=== PATIENT | female | born 1980 | race Caucasian/White ===

== ENCOUNTER 2018-01-31 10:00 | Outpatient (RCR) | payer OTHER, SELFPAY ==
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
--- NOTE | 2018-03-11 11:25 | HP.PT.NRP ---
HP - Discharge Summary (1) - Patient Information STACY CHILEL was seen in my office for initial evaluation on 01/16/18. The following Plan of Care was established for this patient: Initial Frequency: 4x Initial Duration: 3 Weeks - Anticipated Interventions Patient/Client Instruction: Educate patient on: Benefits of Fitness Program Therapeutic Exercise to Include: Strength training, Endurance training, Balance training, Coordination, Agility training, Body mechanics, Postural training, Flexibilty training, Gait and locomotor training, Dynamic Lumbar Stabilization, Scapular Strength/Stabilization For the Purpose of:: To improve muscle performance and motor function This patient was last seen in our office . Pertinent comments regarding their Physical therapy will appear below: Patient has not attended physical therapy in over 4 weeks. At this time patient is appropriate for d/c and return to MD as needed. At this point I will be discontinuing this patient from physical therapy. I would be happy to see this patient again in the future if found appropriate by the physician. Thank you! Brittany White
== END 2018-01-31 19:00 | disposition home or self-care (01) ==
LOC: PT 10:00
DX: S00.93XD Contusion of unspecified part of head, subsequent encounter (principal); S16.1XXD Strain of muscle, fascia and tendon at neck level, subsequent encounter; S23.3XXD Sprain of ligaments of thoracic spine, subsequent encounter; S33.5XXD Sprain of ligaments of lumbar spine, subsequent encounter; S39.012D Strain of muscle, fascia and tendon of lower back, subsequent encounter; S46.911D Strain of unspecified muscle, fascia and tendon at shoulder and upper arm level, right arm, subsequent encounter; S46.912D Strain of unspecified muscle, fascia and tendon at shoulder and upper arm level, left arm, subsequent encounter
CPT/HCPCS: 97110; 97162

== ENCOUNTER 2018-05-27 09:04 | Outpatient (RCR) | payer OTHER, SELFPAY ==
--- NOTE | 2018-05-28 08:56 | HP.FCE ---
HP OT Functional Capacity Eval - Task Lift Floor (Occasional 1-33% of Day): 35# Floor (Frequent 34-66% of Day): 18# Floor (Constant 67-100% of Day): 7# Floor PDL: Light-Medium Knee (Occasional 1-33% of Day): 35# Knee (Frequent 34-66% of Day): 18# Knee (Constant 67-100% of Day): 7# Knee PDL: Light-Medium Waist (Occasional 1-33% of Day): 30# Waist (Frequent 34-66% of Day): 15# Waist (Constant 67-100% of Day): 6# Waist PDL: Light-Medium Shoulder (Occasional 1-33% of Day): 30# Shoulder (Frequent 34-66% of Day): 15# Shoulder (Constant 67-100% of Day): 6# Shoulder PDL: Light-Medium Overhead (Occasional 1-33% of Day): 20# Overhead (Frequent 34-66% of Day): 10# Overhead (Constant 67-100% of Day): NA Overhead PDL: Sedentary-Light - Work Activity/Posture Bending: Frequent Ability (34-66% of day) Squatting: Frequent Ability (34-66% of day) Kneeling: Frequent Ability (34-66% of day) Reaching out: Frequent Ability (34-66% of day) Reaching up: Frequent Ability (34-66% of day) Sitting: Frequent Ability (34-66% of day) Walking: Frequent Ability (34-66% of day) Standing: Frequent Ability (34-66% of day) - Reference Duration Sedentary Sedentary Light Light Light Medium Medium Medium Heavy Very Heavy Heavy Occasional (0-33% of day) Frequent (34-66% of day) Constant (67-100% of day) 10 # Negligible Negligible 15 # 8 # Negligible 20 # 10# Negli. 35 # 18 # 7 # 50 # 25 # 10 # 75 # 100 # >100 # 38 # 50 # >50 # 15 # 20 # >20 # - Patient Information Height: 1.68 m Weight:: 62.142 kg Hand Dominance: Right - Medical History Medical History Including Restrictions: Client states prior to a fall 2016 she was in good health. Client states she is having difficulty with back and neck issues and has been since this fall. Client states she found out about the DDD following this fall at work, resulting in testing MRI, CT scan. Client states she also reported rib fracture left side after fall that healed. Client states she was given dx of neck/back sprain/strain. After the fall client went for treatment with chiropractor services and is currently under family member caretaker. client did have physical therapy at this current facility for work conditioning. Client states she is on lifting restrictions but could not bring this information with her. client states she stretches on a somewhat regular basis. client does smoke and has smoked for about 15 years. - Diagnoses Diagnoses: Asthma dx in 1994 client uses inhaler as needed. Degenerative disc disease dx in 2017. right arm fx remote hx - Symptoms Symptoms: Client states weakness. Pain. irritable - Pain Pain: At rest client states she is 4/10 states she took 4 ibuprofen. client does have a tens unit she can get relieve. - Work History Work History: Client states she was employed at [employer] and was there a week. Client states she walked around the bar and walked through a trap door that was left open by the [employer] delivery vera. 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 she left this job to work at [employer] 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 - Behavioral Behavioral: client was coorperative and put good effort into assessment. - ADLS ADLS: Client states she lives in a ranch home with her mother with one entry steps. No basement. client states no difficulty on her entry step. Client states she uses a tub/shower, and shower chair to sit when showering. Client states she is independence with dressing. Client states she is independent with meal prep and cooking, Client states her mother does her laundry. Client states she is independent with grocery shopping. 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 client does not drive. 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 - Physical Examination ROM: Client demo ROM WNL Strength: Manual muscle testing at 4+/5 grossly throughout. Right Speech Language Specialist Strength Average: 44.33 Right Speech Language Specialist Strength Percentile: 3% Left Speech Language Specialist Strength Average: 47.66 Left Speech Language Specialist Strength Percentile: 11% Right Lateral Pinch Average: 10.00 Right Lateral Pinch Percentile: 10% Left Lateral Pinch Average: 10.00 Left Lateral Pinch Percentile: 25% Right Tripod Pinch Average: 10.00 Right Tripod Pinch Percentile: 25% Left Tripod Pinch Average: 10.00 Left Tripod Pinch Percentile: 25% Comments: Client tested on [employer] simulator II with static comparison natural resources professor strength. Right 1st trial 43.9#. Right 2nd trial 84.3#. Right 3rd trial 65.7#. average right natural resources professor strength 64.6#. Left 1st trial 73.1#. Left 2nd trial 62.9#. Left 3rd trial 75.1#. average left natural resources professor strength 70.4#. Left natural resources professor strength is 8.9% stronger than right. Sensation: Klondike-taty Monofilament sensory testing. Right Thumb/IF 3.22 MF,RF,LF 2.83. left Thumb 3.22, IF, MF, RF, LF 2.83. All testing at 2.83=Normal. All testing at 3.22 = diminished light touch Fine Motor: 9 Hole-Peg test. Right 20.13 sec = 25%. Left 18.23 sec = 50% Balance: No loss of balance noted during assessment - Non Material Handling Activities Bending: client demo the ability to bend forward three times, ten times and ten times rapidly. Client reported feeling fine. client can bend forward on a frequent ability. Squatting: Client demo the ability to squat three times, ten times and ten times rapidly. Client verbalized legs felt tired following. Client can squat on a frequent basis. Kneeling: Client demo the ability to kneel three times, ten times and ten times rapidly. Client reported legs feeling tired following. Client can kneel on a frequent basis. Reaching out/up: Client demo the ability to reach out/up three times, ten times and ten times rapidly. Client performed this task while standing. Client did report when performing ten times her arms felt tired. Client did report going faster her arms did not feel as tired. Client can reach out/up on a frequent ability. Walking: client does not drive so walking is her mode of transportation. client states no difficulty with ambulation. client amb in department with good fast reciprival gait pattern with no difficulties. Client demo the ability to amb on a frequent ability. Standing: Client demo ability to stand 8 min with shifting body weight and leaning on counter top. Client can stand on a frequent ability with shifting body weight. Sitting: Client demo the ability to sit for 50 min with no demo or apparent discomfort. Client can sit on a frequent basis. Climbing Stairs: Client demo the ability to ascend/descend ten steps with no use of hand rails and use of reciprocal step pattern. - Dynamic Occasional Lifting Capacity Floor Lift: Client demo the ability to lift 15# comfortably and 35# maximally from floor level. Therapist cued client in keeping weight close to body vs keeping arms out in front of pt while lifting. pt demo better lifting mechanics flowing cues. Knee Lift: Client demo the ability to lift 15# comfortably and 35# maximally from knee level. Client demo fair lifting mechanics. Waist Lift: Client demo the ability to lift 15# comfortably and 30# maximally from waist level. client demo fair lifting mechanics- client tends to hold boxes out away from her body. Shoulder Lift: Client demo the ability to lift 15# comfortably and 30# maximally from shoulder level. Overhead Lift: Client demo the ability to lift 10# comfortably and 20# maximally from overhead level. Carrying: Client demo the ability to carry 20# for 40 feet with good ability. Comments: Client demo good effort during the assessment. Client states following her assessment she felt tired and her back pain did not change, she reported 4/10.
--- OUTSIDE RECORDS SUMMARY | 2018-07-13 07:40 | XMS RPT_ITS ---
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 Patient Seen at: 09/23/2017 08:37 Chief Complaint:Fall down 10 steps with + Loc Ambulatory upon ems arrival and aandamp;ox3 lac to lt side of forehead History of Present Illness: This is a 37-year-old female with a past medical and surgical history of no significant diseases who presents to the emergency room today for a fall, she tripped down several stairs she tripped over her dog. She did her head, didnt lose consciousness. She is not on blood thinners. She does report head pain, she denies neck or back pain, chest or abdominal pain, extremity pain. Tetanus is greater than 5 years old. She denies any numbness, tingling or weakness. Review of Systems. All other systems reviewed and negative.. Past History, Medications, Allergies, Social History and [facility] PATIENT NAME: ANNE CHILEL [address] [facility] [address] Tejeda MEDICAL REC #: [id number] [place] [address] EMERGENCY DEPARTMENT CHART EMERGENCY DEPARTMENT PHYSICIAN Family History reviewed in nurses note. Medications: Reviewed RN Note. Allergies: Reviewed RN Note Social History: Reviewed RN Note. Family History: Reviewed RN Note Physical Examination: General: Alert and Well Developed HEENT: 4 cm laceration on L side of forehead, no hematoma. Neck: immobilized in cervical collar Respiratory: No Resp Distress, Chest non-tender and Normal Breath Sounds Cardio-Vascular: No murmur and RRR Abdomen: Non-tender and Soft Back: Non-tender Extremity: No edema Neurological: Alert, Oriented X3 and No Gross Weakness Skin: No rash, Warm and Dry Psychological: Mood/Affect Normal Imaging Study Obtained: CT (HEAD/BRAIN) WO CONT Imaging Study Obtained: CT (CERVICAL SP) W/O CON Imaging Study Obtained: CT SINUSES/FACIA BONES WO CONT Imaging Study Obtained: WRIST COMPLETE BILATERAL Imaging Study Obtained: CT CERVICAL SP. W/O CON, Status:Signed Report Available CT CERVICAL SP. W/O CON Ordering Physician: Darion Berrios MD 09/23/2017 8:[address] CERVICAL SPINE WITH SAGITTAL AND CORONAL RECONSTRUCTIONS: Clinical Statement: Status post fall downstairs Comparison: None. [facility] PATIENT NAME: ANNE CHILEL [address] [facility] [address] MEDICAL REC #: [id number] [place] [address] EMERGENCY DEPARTMENT CHART EMERGENCY DEPARTMENT PHYSICIAN TECHNIQUE: 2.5 mm transaxial images were obtained through the cervical spine. Sagittal and coronal reconstructions were processed. FINDINGS: No compression fractures or malalignment. The posterior elements are intact. The facets articulate normally. The craniocervical junction and C1-C2 articulation are normal. There is no prevertebral soft tissue swelling. The fluid collection within the neck or neck mass. The lung apices are clear except for a 3 mm nodule seen laterally in the right lung apex that is likely incidental. There is degenerative disk disease at C5-C6. There is no severe spinal stenosis. There is uncovertebral arthropathy on the left at C3-C4 and C5-C6 and on the right at C5-C6 IMPRESSION: No acute osseous abnormality ---- Electronic Signature on File ---- Signed By: Raz Romero MD [email or web address] Dictated: 09/23/2017 9:28 AM Signed: 09/23/2017 9:32 AM [facility] PATIENT NAME: ANNE CHILEL [address] Te[address]eda MEDICAL REC #: [id number] [place] [address] EMERGENCY DEPARTMENT CHART EMERGENCY DEPARTMENT PHYSICIAN Reported By: RAZ ROMERO M.D. Imaging Study Obtained: CT SINUSES/FACIAL BONES W/O CO, Status:Signed Report Available CT SINUSES/FACIAL BONES W/O CO Ordering Physician: Darion Berrios MD 09/23/2017 8:[address] FACIAL BONES WITH CORONAL RECONSTRUCTIONS: Clinical Statement: Status post fall downstairs head laceration Comparison: None. TECHNIQUE: Helical acquired transaxial images were obtained through the facial bones. Coronal reconstructions were processed. FINDINGS: The visualized portions of the mandible are intact. The maxilla and skull base and calvarium are intact. The orbital beckett are intact. There is soft tissue swelling over the forehead. There is mild mucosal thickening within the paranasal sinuses. The orbits are within normal limits. IMPRESSION: No acute osseous abnormality [facility] PATIENT NAME: ANNE CHILEL [address] [facility] [address] Tejeda MEDICAL REC #: [id number] [place] [address] EMERGENCY DEPARTMENT CHART EMERGENCY DEPARTMENT PHYSICIAN ---- Electronic Signature on File ---- Signed By: Raz Romero MD [email or web address] Dictated: 09/23/2017 9:39 AM Signed: 09/23/2017 9:44 AM Reported By: RAZ ROMERO M.D. Medical Decision Making This is a previously healthy 37-year-old female who presents to the emergency department today for a fall down multiple stairs, she did lose consciousness, she does have a head laceration. On my examination, the patient is in no acute distress, vital signs are notable for no significant abdomen out of his other than hypertension. Differential diagnosis the patient comes complaints include intracoronal trauma including subarachnoid hemorrhage, subdural hemorrhage, intraparenchymal hemorrhage, cervical spine trauma, facial bone fractures. Given a diagnostic possibility, IVs established, imaging is obtained as above. CT of the brain and cervical spine are negative. Laceration will be repaired. Tetanus is updated. CT of the face, brain, and neck are negative. Cervical collar is removed. Lacerations repaired. Patient is treated with pain medications, she does request a prescription for pain medication, she is discharged home with appropriate return precautions, verbal and written discharge instructions. Additional Information: Old records reviewed. Discussed Results, Diagnosis and Follow-Up with Patient. Clinical Impression: 1. closed head injury 2. forehead laceration Disposition: Discharged *Home. Condition: Good [facility] PATIENT NAME: ANNE CHILEL [address] [facility] [address] Tejeda MEDICAL REC #: [id number] [place] [address] EMERGENCY DEPARTMENT CHART EMERGENCY DEPARTMENT PHYSICIAN JUS completed. I was the primary ED attending.. : FlexChartData Event Time: 09/23/2017 11:40 Status: Signed [facility] Anne Chilel [[id number]] Mid-Level Addendum 1980 (V2b) Chart created at 09/23/2017 11:37 by Chilo Carlson Chart closed at 09/23/2017 11:38 Entry in Emergency Department at 09/23/2017 08:24 Patient Name: Anne Chilel Record Number: [id number] Date: 09/23/2017 11:37 Entered Department at: 09/23/2017 08:24 Patient Seen at: 09/23/2017 08:37 Chief Complaint:Fall down 10 steps with + Loc Ambulatory upon ems arrival and aandamp;ox3 lac to lt side of forehead Physician Performed Procedures Procedure note laceration closure: Closable length 6 cm. Down to subcutaneous fat, does not extend deeper. Anesthetized with Marcaine for anesthesia. Irrigated with saline. closed with 5-0 nylon sutures combination of simple interrupted and vertical mattress for adequate approximation, eversion, and hemostasis Direct patient care supervision and electronic [facility] PATIENT NAME: NANE CHILEL [address] [facility] [address] Tejeda MEDICAL REC #: [id number] [place] [address] EMERGENCY DEPARTMENT CHART EMERGENCY DEPARTMENT PHYSICIAN documentation review by Darion Berrios on 09/23/2017 12:35. : Discharge Report Event Time: 09/23/2017 12:15 ===DISCHARGE REPORT=== : FlexChartData Event Time: 09/23/2017 09:50 : FlexChartData Event Time: 09/23/2017 11:40 : Discharge Report Event Time: 09/23/2017 12:15 Status: Draft Reasons to Return to the ER: You must return to the ER for any new, worsening or changing symptoms, or if you feel more ill or sick in any way. This is the most important thing to remember. Follow-up: The care you received in the ER was given on an emergency basis only, and it is often not possible to completely treat or diagnose a problem in a single ER visit. You must see your follow-up doctor for a recheck within a week unless you receive instructions with a different timeframe for follow-up. Please follow all your discharge instructions. Medications: Unless the ER doctor tells you differently, you should take all your regular medications and any new medications prescribed today. Because it is not possible for the ER doctor to review all of your medication side effects or interactions, you must review possible side effects and interactions with your pharmacist when you get your prescriptions filled. EKG and Radiology Results: A geoduck diver or radiologist will review any EKG or radiology results provided by the ER doctor. We will [facility] PATIENT NAME: ANNE CHILEL [address] [facility] [address] Tejeda MEDICAL REC #: [id number] [place] [address] EMERGENCY DEPARTMENT CHART EMERGENCY DEPARTMENT PHYSICIAN contact you if the results in the final EKG or radiology reports require a change in treatment. Culture Results: Cultures may have been ordered during your ER visit. We will contact you if the culture results require a change in treatment. Referrals: Most referrals to specialists come from the on-call list You should make your regular doctor aware of any referrals before you schedule the appointment so that they are aware and can make suggestions DIAGNOSIS: closed head injury, forehead laceration INSTRUCTIONS: use pain medication such as Tylenol and motrin for mild pain, use Faxon for more severe pain, return if having worsening pain, redness, swelling, or drainage from wound, numbness, tingling, weakness, difficulty with movement, difficulty speaking, or any other worsening or non improvement remove sutures in 5-7 days at PCP/statcare/or ER It is very important that a responsible person stay with the patient to watch for head injury symptoms over the next 24 hours. During this 24 hours, the patient must be observed closely and should be awakened every 3-4 hours while sleeping (even at night). UNLESS THE ER DOCTOR GIVES YOU OTHER INSTRUCTIONS, YOU MUST SEE YOUR FOLLOW-UP DOCTOR WITHIN 2 TO 3 DAYS FOR RECHECK. YOU MUST RETURN TO THE ER RIGHT AWAY FOR ANY OF THE FOLLOWING:New or increasing headacheNew or increasing nausea or vomitingFever or chillsNew or more seizuresDrainage or bleeding from the nose or earsIncreasing confusion or dizzinessWeakness in the arms or legsNew or increasing vision problemsSlurred speechUnequal [facility] PATIENT NAME: ANNE CHILEL [address] [facility] [address] Tejeda MEDICAL REC #: [id number] [place] [address] EMERGENCY DEPARTMENT CHART EMERGENCY DEPARTMENT PHYSICIAN pupilsJust not acting right After careful evaluation, the doctor feels that it is OK to send you home at this time. Just because you were not admitted into the hospital today does not mean that your head injury may not become more serious. Even very serious problems, like brain swelling or bleeding, can start with a normal examination or test results. You should avoid alcohol and aspirin, unless you are taking the aspirin for another medical problem. You must use all of your regular medications plus all the medications that were given to you today. It is very important that a responsible person stay with the patient to watch for head injury symptoms over the next 24 hours. During this 24 hours, the patient must be observed closely and should be awakened every 3-4 hours while sleeping (even at night). UNLESS THE ER DOCTOR GIVES YOU OTHER INSTRUCTIONS, YOU MUST SEE YOUR FOLLOW-UP DOCTOR WITHIN 2 TO 3 DAYS FOR RECHECK. YOU MUST RETURN TO THE ER RIGHT AWAY FOR ANY OF THE FOLLOWING:New or increasing headacheNew or increasing nausea or vomitingFever or chillsNew or more seizuresDrainage or bleeding from the nose or earsIncreasing confusion or dizzinessWeakness in the arms or legsNew or increasing vision problemsSlurred speechUnequal pupilsJust not acting right REFERRAL Your regular doctor(s) Please call the above number to schedule a follow-up appointment. MEDICATIONS We have given you these prescriptions that you must fill and start taking: Faxon 5 mg-325 mg tablet, count:12, Dose = 1, count:12, 3 days, count:12,every 6 hours, count:12, Number of Refills = [facility] PATIENT NAME: ANNE CHILEL [address] [facility] [address] Te[address]eda MEDICAL REC #: [id number] [place] [address] EMERGENCY DEPARTMENT CHART EMERGENCY DEPARTMENT PHYSICIAN 0, count:12, [id number], ICD 10 S06.0, count:12 My signature below indicates that I have received and understand the oral instructions regarding my medical problem. I also acknowledge receipt of this written instruction sheet including a list of major tests and procedures ordered during my visit. I will arrange for follow-up care as indicated by these instructions and referrals. This signed original will be kept in my medical record. Your signature below indicates consent for Case Management to [facility] in an effort to meet your ongoing healthcare needs. This will allow forcontinuity of care once you leave the Emergency Department. This exchange of informationwill include, but not be limited to, disclosure of your patient information and possible release of records. 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 Te[address]eda MEDICAL REC #: [id number] [place] [address] EMERGENCY DEPARTMENT CHART EMERGENCY DEPARTMENT PHYSICIAN Ambulatory upon ems arrival and aandamp;ox3 lac to lt side of forehead Arrival Date: 09/23/2017 08:24 Triage Date: 09/23/2017 08:25 Mode of Arrival: Ambulance Transfer From: * Home WC: N Language: Lithuanian Transport: [facility] BED AHALL12 In: 09/23/2017 08:27:02 09/23/2017 08:27:02 [facility] AHALL12 (Removed From) Out: 09/23/2017 09:39:55 09/23/2017 09:39:55 [facility] A12 In: 09/23/2017 09:39:55 09/23/2017 09:39:55 [facility] A12 (Removed From) Out: 09/23/2017 12:49:47 09/23/2017 12:49:47 [facility] PROVIDERS MD Darion Berrios Provider Contact: 09/23/2017 08:37:15 ADB End: DENIA CHESTER Provider Contact: 09/23/2017 08:46:31 KAS[facility] End: LIDIA Carlson Provider Contact: 09/23/2017 10:34:34 RAYD End: TRIAGE HISTORY [facility] PATIENT NAME: ANNE CHILEL [address] MEDICAL REC #: [id number] [place] [address] EMERGENCY DEPARTMENT CHART EMERGENCY DEPARTMENT PHYSICIAN NURSING ASSESSMENT ASSESSMENT NOTES 09/23/2017 08:30 see trauma flow sheet 09/23/2017 12:49 [facility] TREATMENT 09/23/2017 08:46 Trauma Time Activation - 2. Trauma Standby Called @ 0813 09/23/2017 08:46 AAR MEDICATIONS IV I AND O VITALS VS-ROUTINE Time: 09/23/2017 09:35 B/P: 126/86 - Right Upper Arm - Sitting - Machine Pulse: 69 - Monitor Resp: 20 Sa02: 99 Room Air Temp: 97.60 F - Oral 09/23/2017 10:00 [facility] VS-Pain Time: 09/23/2017 09:35 Pain Level: 10 09/23/2017 10:00 [facility] VS-GCS Time: 09/23/2017 09:35 Visual: 4 Verbal: 5 Motor: 6 GCS Total: 15 09/23/2017 10:00 [facility] VS-HT/WT Time: 09/23/2017 09:35 Ht: 66 in. Stated Weight: 135 lbs Stated 09/23/2017 10:00 [facility] VS-Visual Time: 09/23/2017 09:35 09/23/2017 10:00 [facility] VS-FHT Time: 09/23/2017 09:35 09/23/2017 10:00 [facility] VS-Notes Time: 09/23/2017 09:35 map 103 09/23/2017 10:00 KASD [facility] PATIENT NAME: ANNE CHILEL [address] [facility] [address] Te[address]eda MEDICAL REC #: [id number] [place] [address] EMERGENCY DEPARTMENT CHART EMERGENCY DEPARTMENT PHYSICIAN ORDERS Discharge patient 09/23/2017 12:16 N/A Ordered: 09/23/2017 12:12 By . Other Reviewed: 09/23/2017 12:16 By . Other Micky wrap 09/23/2017 12:05 N/A Ordered: 09/23/2017 11:44 By Darion Berrios Completed Time: 09/23/2017 12:05 By Darion Berrios Question: Location? Answer: bilateral wrists Morphine (IV)*(4mg/ml) DOSE:4 mg IV 09/23/2017 10:09 N/A Ordered: 09/23/2017 09:58 By Darion Berrios Completed Time: 09/23/2017 10:[address] C-spine w/o con 09/23/2017 09:40 N/A Ordered: 09/23/2017 08:45 By Darion Berrios Completed Time: 09/23/2017 09:40 By Darion Berrios Indication: fall down multiple stairs Noted Time: 09/23/2017 09:20 Question: Are you or think you might be ? Answer: NO CT sinuses/facial bones w/o con 09/23/2017 09:51 N/A Ordered: 09/23/2017 08:45 By Darion Berrios Completed Time: 09/23/2017 09:51 By Darion Berrios Indication: fall, forehead laceration Noted Time: 09/23/2017 09:20 Question: Are you or think you might be ? Answer: NO CT head/brain w/o con 09/23/2017 09:40 N/A Ordered: 09/23/2017 08:45 By Darion Berrios Completed Time: 09/23/2017 09:40 By Darion Berrios Indication: fall, forehead laceration Noted Time: 09/23/2017 09:20 Question: Are you or think you might be ? Answer: NO [facility] PATIENT NAME: ANNE CHILEL [address] [facility] [address] Te[address]eda MEDICAL REC #: [id number] [place] [address] EMERGENCY DEPARTMENT CHART EMERGENCY DEPARTMENT PHYSICIAN Zofran (IV)*(2mg/ml) DOSE: 4 mg IV 09/23/2017 11:44 N/A Ordered: 09/23/2017 09:58 By Darion Berrios Cancelled: 09/23/2017 11:44 ADB Cancelled Reason: not needed Wrist series (bilat) 09/23/2017 09:45 N/A Ordered: 09/23/2017 08:45 By Darion Berrios Indication: bilateral wrist pain after fall Question: Are you or think you might be ? Answer: NO Question: How is patient transported? (A = Ambulatory, B = Bed, C = Carry, CR = Crib, P = Portable, S = Stretcher, W = Wheelchair, X = Wide Wheelchair, XT = Trauma X RM17 (ED Only)) Answer: STRETCHER Cancelled: 09/23/2017 09:45 ADB Cancelled Reason: patient refuses DISCHARGE Diagnosis: closed head injury, forehead laceration 09/23/2017 12:15 CANCELLED DIAGNOSES Diagnosis Name: closed head injury, forehead laceration Disposition: Time: 09/23/2017 12:12 Discharge Time: 09/23/2017 12:49 Type: Discharge Condition: Stable for admission/discharge/transfer after emergency evaluation/treatment Category: *NOT APPLICABLE Referral: 09/23/2017 12:15 Admit Physician: . Other PRESCRIPTIONS Faxon 5 mg-325 mg tablet 09/23/2017 12:15 SI q6h severe pain for 3 days Additional Instructions: [id number], ICD 10 S06.0 Dispense: 12 / Refills: [facility] PATIENT NAME: ANNE CHILEL Rhonda [address] [facility] [address]eda MEDICAL REC #: [id number] [place] [address] EMERGENCY DEPARTMENT CHART EMERGENCY DEPARTMENT PHYSICIAN CHARGES SIGNATURE Melida Vega SILVINO Sanchesard Aldo MURILLO LFAikla ANTONIO [facility] THIERNO CHESTER RN KASAkila WILCOX KKF Darion Berrios MD ADB [facility] PATIENT NAME: ANNE CHILEL [address] [facility] [address]eda MEDICAL REC #: [id number] [place] [address] EMERGENCY DEPARTMENT CHART EMERGENCY DEPARTMENT PHYSICIAN CT SINUSES/FACIAL BONES Observed: 09/23/2017 Status: F Source: [facility] W/O CO 8:45 AM [facility] REPOSITORY CT SINUSES/FACIAL BONES W/O CO Ordering Physician: Darion Berrios MD 09/23/2017 8:[address] FACIAL BONES WITH CORONAL RECONSTRUCTIONS: Clinical Statement: Status post fall downstairs head laceration Comparison: None. TECHNIQUE: Helical acquired transaxial images were obtained through the facial bones. Coronal reconstructions were processed. FINDINGS: The visualized portions of the mandible are intact. The maxilla and skull base and calvarium are intact. The orbital beckett are intact. There is soft tissue swelling over the forehead. There is mild mucosal thickening within the paranasal sinuses. The orbits are within normal limits. IMPRESSION: No acute osseous abnormality ---- Electronic Signature on File ---- Signed By: Raz Romero MD [email or web address] Dictated: 09/23/2017 9:39 AM Signed: 09/23/2017 9:44 AM Reported By: RAZ ROMERO M.D. Signed By: RAZ ROMERO M.D. CT CERVICAL SP. W/O Observed: 09/23/2017 Status: F Source: [facility] 8:[address] [facility] [address] CERVICAL SP. W/O CON Ordering Physician: Darion Berrios MD 09/23/2017 8:[address] CERVICAL SPINE WITH SAGITTAL AND CORONAL RECONSTRUCTIONS: Clinical Statement: Status post fall downstairs Comparison: None. TECHNIQUE: 2.5 mm transaxial images were obtained through the cervical spine. Sagittal and coronal reconstructions were processed. FINDINGS: No compression fractures or malalignment. The posterior elements are intact. The facets articulate normally. The craniocervical junction and C1-C2 articulation are normal. There is no prevertebral soft tissue swelling. The fluid collection within the neck or neck mass. The lung apices are clear except for a 3 mm nodule seen laterally in the right lung apex that is likely incidental. There is degenerative disk disease at C5-C6. There is no severe spinal stenosis. There is uncovertebral arthropathy on the left at C3-C4 and C5-C6 and on the right at C5-C6 IMPRESSION: No acute osseous abnormality ---- Electronic Signature on File ---- Signed By: Raz Romero MD [email or web address] Dictated: 09/23/2017 9:28 AM Signed: 09/23/2017 9:32 AM Reported By: RAZ ROMERO M.D. Signed By: RAZ ROMERO M.D. CT HEAD/BRAIN W/O CON Observed: 09/23/2017 Status: F Source: [facility] 8:[address] [facility] [address] HEAD/BRAIN W/O CON Ordering Physician: Darion Berrios MD 09/23/2017 8:[address] BRAIN WITHOUT CONTRAST: Clinical Statement: Status post fall for a head laceration Comparison: None. TECHNIQUE: Noncontrast axial images were obtained through the brain FINDINGS: The ventricles and cisternal spaces are normal in size and configuration for a patient of this age. There is no hemorrhage or extra-axial fluid collection. No acute infarct, mass, or shift of midline structures. There is mild mucosal thickening in the ethmoid sinuses and left maxillary sinus. The mastoid air cells and middle ears are clear. The calvarium is intact. The orbits are appropriate. There is soft tissue swelling over the left side of the for head. A soft tissue laceration is also noted. IMPRESSION: No acute intracranial abnormality ---- Electronic Signature on File ---- Signed By: Raz Romero MD [email or web address] Dictated: 09/23/2017 9:33 AM Signed: 09/23/2017 9:36 AM Reported By: RAZ ROMERO M.D. Signed By: RAZ ROMERO M.D. ED DOC Observed: 08/22/2017 Status: UNK [facility] REPOSITORY This is a preliminary report only, as the practitioner review and authentication has not occurred. 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[employer] [facility] Patient: ANNE CHILEL Sex: F : 1980 Age: 37 yr Account No: [id number] Registration Date: 12:14 08/22/2017 Address: [address] [place] [address] Address: [place] [id number] REGISTRATION ED Number: [id number] Marital Status: D Financial Class: [employer] TRIAGE Arrival Date: 08/22/2017 12:14 WC: N BED PROVIDERS TRIAGE HISTORY [facility] PATIENT NAME: ANNE CHILEL [address] MEDICAL REC #: [id number] [place] [address] EMERGENCY DEPARTMENT CHART EMERGENCY DEPARTMENT PHYSICIAN NURSING ASSESSMENT ASSESSMENT NOTES TREATMENT MEDICATIONS IV I AND O VITALS ORDERS LBE (Left Before Exam) 08/22/2017 13:02 N/A Ordered: 08/22/2017 13:02 By REYNA SIBLEY Reviewed: 08/22/2017 13:02 By REYNA SIBLEY DISCHARGE Diagnosis: LWT 0 08/22/2017 13:02 Disposition: Time: 08/22/2017 13:01 By: REYNA SIBLEY Discharge Time: 08/22/2017 13:01 Type: LBE Condition: LBE Category: *NOT APPLICABLE Concurred: 08/22/2017 13:02 By: PADDY Pt left and sts she was going to [facility]. Referral: 08/22/2017 13:02 PADDY [facility] PATIENT NAME: ANNE CHILEL [address] [facility] Te[facility]eda MEDICAL REC #: [id number] [place] [address] EMERGENCY DEPARTMENT CHART EMERGENCY DEPARTMENT PHYSICIAN PRESCRIPTIONS CHARGES SIGNATURE REYNA THOMASON [facility] PATIENT NAME: ANNE CHILEL [address] [facility] [address] Tejeda MEDICAL REC #: [id number] [place] [address] EMERGENCY DEPARTMENT CHART EMERGENCY DEPARTMENT PHYSICIAN SURG Observed: 08/12/2017 Status: F Source: [facility] 10:40 AM [facility] REPOSITORY Patient: ANNE CHILEL SPECIMEN: [id number] Collection Date: 08/12/171039 Received: 08/12/17 Status: MARCOS Anderson Dr.: Mikal Jeong MD Ph# Othr. Dr.: No Family Physician given Material for Examination: A OCCIPITAL LIPOMA PRE-OP DIAGNOSIS: OCCIPITAL CONTUSION POST-OP DIAGNOSIS: OCCIPITAL LIPOMA SURGICAL PROCEDURE: EXCISION OF OCCIPITAL LIPOMA DIAGNOSIS A. Occipital lipoma, excision: - Encapsulated mature adipose tissue consistent with lipoma. GROSS DESCRIPTION The specimen is received in formalin and labeled with the patient's name, ID and designated occipital lipoma, is a amaya focally encapsulated portion of adipose tissue, 3.2 x 2.8 x 1.3 cm. Cut section has a uniform, amaya, fatty appearance. No areas of hemorrhage or necrosis are grossly identified. [place] sections are submitted in cassette A1. MICROSCOPIC DESCRIPTION One Marilee stained slide examined. COPIES TO: No Family Physician given Mikal Jeong MD Signed Verified/Reviewed by LAKSHMI BARNES M.D. 08/13/17 This dictation was created using voice recognition software. Phonetic and/or minor grammatical errors may exist. [facility] NAME: ANNE CHILEL Pathology and Laboratory Medicine UNIT#: [id number] LOC: [facility] Advanced Solutions Architect: Lakshmi Barnes M.D. [id number] ROOM/BED: [employer] : 78 AGE/SEX: 37/F ORD.Mikal Mg MD END OF REPORT HCG Collected: 08/12/2017 Status: F Source: [facility] 8:21 AM [facility] REPOSITORY Order Comment: Cecil: TYPE CODE TESTS RESULT OUT OF RANGE REFERENCE UNITS LAB L500.37022 NEGATIVE Normal HCG SER NEGATIVE RESULT Performed By: #### L500.02722 #### [facility] LABORATORY [facility] [place] [address] OR Observed: 08/12/2017 Status: UNK Source: [facility] 7:36 AM [facility] REPOSITORY DATE OF SERVICE: 08/12/2017 PREOPERATIVE DIAGNOSIS: Midline occipital subgaleal lipoma. POSTOPERATIVE DIAGNOSIS: Midline occipital subgaleal lipoma. OPERATION: Excision of occipital subgaleal lipoma. SURGEON: Mikal Jeong MD ANESTHESIA: General. INDICATIONS: This patient is a 37-year-old woman with a history of a fall where she struck her head in March of last year. Ever since, she has noticed a soft, fluctuant, what feels like a fluid collection in the occipital midline scalp area. She presented to my office stating that she thinks it is a non-resolved hematoma, but imaging actually shows that it is a deep subgaleal lipoma and it is fairly large. It is a little over 3-cm in diameter . She is brought to the operating room at this time for excision of the lipoma. DETAILS OF THE PROCEDURE: The patient was brought to the OR and placed in the supine position. She was given general anesthesia and ventilated with laryngeal mask airway. The head was turned to the side so that we could approach the posterior midline occipital area. The hair was parted away from it without shaving the scalp and then injected with 3 mL of lidocaine with epinephrine. She was prepped and draped in the usual sterile fashion. The short transverse incision was made over the area of the lipoma. Bleeding from the scalp edges was controlled with a Bovie. The lipoma was deep to the galea. An incision was made through the galea and then the lipoma capsule was encountered. A capsular dissection was performed, excising all of the lipoma. Some galeal bleeders were cauterized with the Bovie. The closure was obtained using some very deep 3-0 Prolene sutures deep enough to catch both the skin edge and the galea and reapproximate the galea and try to close that space so that she does not actually get a hematoma from this lipoma excision. ESTIMATED BLOOD LOSS: 5 mL. SPECIMENS: Occipital lipoma to Pathology. COMPLICATIONS: None. Mikal Jeong MD [facility] PATIENT NAME: ANNE CHILEL [address] [facility] [address] Te[address]eda MEDICAL REC #: [id number] [place] [address] ADMIT DATE: DISCHARGE DATE: OPERATIVE REPORT ATTENDING PHY: Mikal Jeong MD /[id number] SSI File#: [id number] Verified/Reviewed by 08/17/17 Kisha BROWN [facility] PATIENT NAME: ANNE CHILEL [address] [facility] [address] Te[address]eda MEDICAL REC #: [id number] [place] [address] ADMIT DATE: DISCHARGE DATE: OPERATIVE REPORT ATTENDING PHY: Mikal Jeong MD ALLERGIES ALLERGIES No Allergies Records FoundENCOUNTERS ENCOUNTERS ADMIT/DISCHARGE ACCOUNT NUMBER ADMITTING ENCOUNTER LOCATION SOURCE CLASS 06/27/2018 [id number] [facility] ding:PT Repository 05/27/2018 [id number] [facility] ding:OT Repository 01/31/2018/02/01/[id number] ding:PT Repository 09/30/2017 [id number] Emergency [facility] Repository ng:H.ED 09/23/2017 [id number] Emergency [facility] Repository ng:H.ED 08/22/2017 [id number] Emergency [facility] Repository ng:H.ED 08/21/2017/08/22/19 [id number] ELI TORRES, Emergency BBuilding:ER Andrea [address] [place] [address] Repository 08/12/2017 [id number] Inpatient [facility] Repository ng:H.SD 07/15/2017/07/15/19 [id number] Emergency BBuilding:MIRANDA Mendez [address] [place] [address] Repository 07/15/2017/07/15/19 [id number] Emergency BBuilding:MIRANDA Mendez [address] [facility] Repository PAYERS PAYERS ENCOUNTER GUARANTOR PAYER SUBSCRIBER SOURCE 06/27/2018 ANNE Ellis Primary Insurance:[facility] [employer] ANNE L Ang [id number] N VOC REHABILITATIONPolicy VENABLESDOB: [facility], Number: [id number] [address]Qsh: [id number] Repository Date: () [place], [place] [address]FQ: 06/27/2018 Secondary Insurance:SELF NOT GIVENUNK [place] PAY INSURANCEPolicy Community Number: Effective Hospital Date:2018-06-05 Repository 05/27/2018 ANNE Ellis Primary Insurance:[employer] AN[employer] Ang [id number] N VOC REHABILITATIONPolicy VENABLESDOB: [facility], Number: [id number] [facility] [address]Njh: [id number] Repository Date: () [place], [place] [address]FS: 05/27/2018 Secondary Insurance:SELF NOT GIVENUNK [place] PAY INSURANCEPolicy Community Number: Effective Hospital Date:2018-01-31 Repository 01/31/2018 ANNE Ellis Primary Insurance:OBWC ANNE L [place] [id number] [address] [facility]DOB[facility] Number: [id number] [address]Lbk: [id number] Repository Date: () [place] [address], [place] [address]RP: 01/31/2018 Secondary Insurance:SELF NOT GIVENUNK Ang PAY INSURANCEPolicy Community Number: Effective Hospital Date:2018-01-08 Repository 09/30/2017 ANNE Ellis Primary ANNE Ellis [facility] Medical [id number] N Insurance:CARESOURCEPolic VENABLESUNK [facility], Number: Repository [place] [id number]: [id number] Date:2017-07-18[address] (HP) [address] [place] [address]FC: 09/23/2017 ANNE L Primary ANNE L [facility] [id number] N Insurance:[facility], y Number: [place]ository [place] [id number]: [id number] Date:2017-07-18[address] (HP) [address] [place] [address]DL: 08/22/2017 ANNE L Primary [facility] [id number] N Insurance:[facility], y Number: Repository [place] [id number]: [id number] Date:2017-07-18[address] () [address] [place] [address]SU: 08/21/2017 [facility] VENABLESDOB: Insurance[facility]: [facility] MEDICAIDPolicy Number: [id number] Repository [facility] [id number] [place] Date:2017-07-18 [facility] [address]Fon: [id number]: [id number] Name:[address] [place] [address] ()Tel: [phone]) (HP) [phone]: () [phone] 08/12/2017 ANNE L Primary ANNE [facility] [id number] N [facility] y Number: Repository [place] [id number]: [id number] Date:2017-08-07[address] () [address] [place] [address]NG: 07/15/2017 ANNE Primary Insurance:SELF [facility] PAYPolicy Number: [id number] MERDOB: Effective Date:2017-07-15 RDOB: Repository - [id number] Name: [id number] [facility] [place] [address]Fjr: [id number]: (WP) (WP) 07/15/2017 ANNE L Primary Insurance:SELF [facility] VENABLESDOB: PAYPolicy Number: LIAB: [id number] Effective Date:2017-07-15 [id number] [facility] [id number] Name:[address] [place] [address]Knr: [id number]: (HP)Tel: [phone]) (HP) [phone] (WP)
== END 2018-05-27 19:00 | disposition home or self-care (01) ==
LOC: OT 09:04
DX: S00.93XD Contusion of unspecified part of head, subsequent encounter (principal); S16.1XXD Strain of muscle, fascia and tendon at neck level, subsequent encounter; S22.32XD Fracture of one rib, left side, subsequent encounter for fracture with routine healing; S23.3XXD Sprain of ligaments of thoracic spine, subsequent encounter; S46.912D Strain of unspecified muscle, fascia and tendon at shoulder and upper arm level, left arm, subsequent encounter; S46.911D Strain of unspecified muscle, fascia and tendon at shoulder and upper arm level, right arm, subsequent encounter; S39.012D Strain of muscle, fascia and tendon of lower back, subsequent encounter; S33.5XXD Sprain of ligaments of lumbar spine, subsequent encounter
CPT/HCPCS: 97750

== ENCOUNTER 2018-06-27 12:00 | Outpatient (RCR) | payer OTHER, SELFPAY ==
--- NOTE | 2018-06-16 12:49 | HP.PTEVAL_ITS ---
Patient's Visit Information STACY CHILEL is a 38 year old F referred to Physical Therapy by FAREED KOEHLER with a diagnosis of HEMATOMA SKULL,CERVICAL STRAIN,R-L SHOULFER STRAIN,SPRAIN LIGAMENT THORACIC. Date of Evaluation: 06/16/18 Physical Therapist: Munir Haskins, PT, Cert MDT, OCS - Visit Plan Frequency: 3-5X/WK Duration: 2 Weeks Plan: WORK CONDITIONING 2HOURS 3-5DAYS/WEEK. . CERVICAL/THORACIC STRENGTHENING,POSTURAL EX'S,ENDURANCE/CONDITION PROGRAM ,PROPER LIFTING TECHNIQUE - Subjective Findings: This 38 y/o female presents to physical therapy with cervical strain,closed fracture 7th rib sprain thoracic ligaments and left and right shoulder strain.Patient working at [employer] fell through trap door Mar 29, 2017. Ptient had immediate pain unconcious immediated pain. Patient went to ER at [facility]. Multple test Catscan,MRI,x-rays thoracic,cervical and shoulder pain. 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 Intially ,seen Chiropractor and did Rehab 8weeks. Patient then started PT workconditioning 2weeks for 2.5 hours. Patient conts to get chiropractor treatments x2 week,TENS unit at home. Patient trying avoid back injections.Paln to start pain management. Patient denies parathesai/tingling,MARTINEZ,tinnutus/dizziness. Pain affects sleeping. Patient located cervical and and mid thoracic region. patient has shoulder ash n as w ell. Symptoms worse in the morning ,bending,lifing,OH weakness. Symptoms better with MEDS,TENS.pain symptoms affect QOL and ADL'S/housework tasks. Symptoms more decsribed as ache. SOCIAL: . VOCATION: unemployed - Pain Bilateral Neck Pain Intensity (Out of 10): 3 Pain Intensity Range: 10 Left Back Pain Intensity (Out of 10): 7 Pain Intensity Range: 10 Comment: mid thoracic Bilateral Shoulder Pain Intensity (Out of 10): 3 Pain Intensity Range: 10 - Objective POSTURE: rounded shoulders head foward. PALAPTION: tender UT /levator,paraspinals,thoracic. GAIT: normal carlos. NEURO: denies parathesia/tingling,reflexes C5-6-7 2/3. KITCHEN STEWARD STRENGTH: 40# dynameter. AROM: BUE WFL. CERVICAL ROM: flexion mod loss,extension mod loss ,lateral flexion/mod loss rotation pain all planes. THORACIC ROM: mod flexion ,rotation mod loss. MMT: grossly 4-/5 except lateral deltoid 3+/5 - Special Tests C/S Radiculapathy - Left Upper limb tension test: Negative C/S Radiculapathy - Right Upper limb tension test: Negative C/S Radiculapathy - Left Spurlings: Positive C/S Radiculapathy - Right Spurlings: Positive C/S Radiculapathy - Left Cervical distraction: Negative C/S Radiculapathy - Right Cervical distraction: Negative Sharp Warren: Negative Vertebral Artery Test: Negative Alar Ligament Test: Negative Cervical Sitting: Protrusion - Mechanical Response: No effect Cervical Sitting: Protrusion - Symptoms During Testing: Increases Cervical Sitting: Protrusion - Symptoms After Testing: Worse Cervical Sitting: Retraction - Mechanical Response: No effect Cervical Sitting: Retraction - Symptoms During Testing: Increases Cervical Sitting: Retraction - Symptoms After Testing: Worse Thoracic Sitting: Flexion - Mechanical Response: No effect Thoracic Sitting: Flexion - Symptoms During Testing: Increases Thoracic Sitting: Flexion - Symptoms After Testing: Worse Thoracic Sitting: Extension - Mechanical Response: No effect Thoracic Sitting: Extension - Symptoms During Testing: Increases Thoracic Sitting: Extension - Symptoms After Testing: Worse Thoracic Sitting: Right rotation - Mechanical Response: No effect Thoracic Sitting: Right Rotation - Symptoms During Testing: Increases Thoracic Sitting: Right Rotation - Symptoms After Testing: Worse Thoracic Sitting: Left rotation - Mechanical Response: No effect Thoracic Sitting: Left Rotation - Symptoms During Testing: Increases Thoracic Sitting: Left Rotation - Symptoms After Testing: Worse - Goals Goal 1:: Independant with HEP for strengthening. Goal Time Frame: 2-4 Weeks Goal 2:: Patient to improve posture/body mecahanics for function. Goal Time Frame: 2-4 Weeks Goal 3:: Patient to improve cervical and thoracic ROM for function of recovery. Goal Time Frame: 2-4 Weeks Goal 4:: Patient to decrease pain by 50% or grearer to improve function with RTW/housework tasks. Goal Time Frame: 2-4 Weeks Goal 5:: Patient in PEPE CERVICAL score by 5 points to improve QOL. Goal Time Frame: 4-6 Weeks Goal 6:: Patient increase strengt to 4/5 to improve function with housework and RTW as able. Goal Time Frame: 2-4 Weeks - Rehabilitation Potential Physical Therapy Diagnosis: Patient has impairments with decrease cervical/thoracic ROM ,decrease strength,pain impairs function thus benifit fro work conditioning to return to job demands. Rehabilitation Potential: Good - Anticipated Interventions Patient/Client Instruction: Educate patient on: Condition, Plan of Care For the Purpose of:: To decrease pain, To increase ROM, To improve muscle performance and motor function, To improve ability to perform ADL's, To increase tolerance to activity/condition/position, To improve ability of physical actions for home/community/work/leisure, To improve health of tissue, To decrease soft tissue restriction, To increase flexibility/ROM, To improve endurance, To reduce risk of recurrence, To improve ability to perform tasks related to life management Therapeutic Exercise to Include: Strength training, Endurance training, Body mechanics, Postural training, Flexibilty training, Dynamic Lumbar Stabilization Comment: WORK CONDITIONING For the Purpose of:: To decrease pain, To increase ROM, To improve muscle performance and motor function, To improve ability to perform ADL's, To increase tolerance to activity/condition/position, To improve performance and independence with ADL's, To improve ability of physical actions for home/community/work/leisure, To improve health of tissue, To decrease soft tissue restriction, To increase flexibility/ROM, To improve endurance, To reduce risk of recurrence, To improve ability to perform tasks related to life management Thank you for the opportunity to evaluate your patient. For Medicare and Medicare HMO plans, please review the plan of care and approve it. It will need to be FAXED BACK to us at [phone] for Medicare purposes. For Medicare only, by signing this I certify the plan of care. Please let me know if there are questions or concerns regarding this plan of care. Physician Signature: Date:
--- NOTE | 2018-06-27 14:25 | HP.PTDCSUM ---
HP - PT D/C Summary It has been my pleasure to treat STACY CHILEL under orders from FAREED KOEHLER, for the diagnosis of HEMATOMA SKULL,CERVICAL STRAIN,R-L SHOULFER STRAIN,SPRAIN LIGAMENT THORACIC for a total of 9 visit(s). Discharge Date: 06/27/18 Please see the following information for a summary of their discharge status. - Subjective Subjective: Patient stated ready to RTW . Plan to get to [facility]. Also plan for VOC REHAB. Patient c/o generalized soreness - Pain Bilateral Neck Pain Intensity (Out of 10): 2 Left Back Pain Intensity (Out of 10): 3 Bilateral Shoulder Pain Intensity (Out of 10): 2 - Overall Improvement % Improvement: 70 - Objective Objective/Function: POSTURE:WFL. MMT: BUE 4/5 GROSSSLY RTC 5/5. QUADS/HAMS/HIP 4/5 ,ANKLE 5/5. CERVICAL ROM: FLEXION/EXTENSION /ROTATION/LATERAL FLEXION WFL. THORACIC ROM: MIN LOSS FLEXION /EXTENSION. LUMBAR ROM:FLEXION WNL FLEXION EXTENSION - Goals Goal 1:: Independant with HEP for strengthening. Goal Progress: Goal Met Goal 2:: Patient to improve posture/body mechanics for function. Goal Progress: Goal Met Goal 3:: Patient to improve cervical and thoracic ROM for function of recovery. Goal Progress: Goal Met Goal 4:: Patient to decrease pain by 50% or grearer to improve function with RTW/housework tasks. Goal Progress: Goal Met Goal 5:: Patient in PEPE CERVICAL score by 5 points to improve QOL. Goal Progress: Goal Met Goal 6:: Patient increase strengt to 4/5 to improve function with housework and RTW as able. Goal Progress: Goal Met - Plan Plan: D/C - D/C Information Discharge Comments: HEP If there are questions or concerns regarding this patient's physical therapy, please feel free to call me at [phone]. Thank you for the referral of this patient. Sincerely, Munir Haskins, PT, Cert MDT, OCS
--- NOTE | 2018-07-01 16:11 | HP.PTDCSUM ---
HP - PT D/C Summary It has been my pleasure to treat STACY CHILEL under orders from FAREED KOEHLER, for the diagnosis of HEMATOMA SKULL,CERVICAL STRAIN,R-L SHOULFER STRAIN,SPRAIN LIGAMENT THORACIC for a total of 9 visit(s). Discharge Date: 06/27/18 Please see the following information for a summary of their discharge status. - Subjective Subjective: Patient stated ready to RTW . Plan to get to [facility]. Also plan for [facility] REHAB. Patient c/o generalized soreness - Pain Bilateral Neck Pain Intensity (Out of 10): 2 Left Back Pain Intensity (Out of 10): 3 Bilateral Shoulder Pain Intensity (Out of 10): 2 - Overall Improvement % Improvement: 70 - Objective Objective/Function: POSTURE:WFL. MMT: BUE 4/5 GROSSSLY RTC 10/19. QUADS/HAMS/HIP /5 ,ANKLE /5. CERVICAL ROM: FLEXION/EXTENSION /ROTATION/LATERAL FLEXION WFL. THORACIC ROM: MIN LOSS FLEXION /EXTENSION. LUMBAR ROM:FLEXION WNL FLEXION EXTENSION. ADDEDUM: FUNCTIONAL TESTING: PATIENT COMPLETED 20-25# OVER HEAD LIFTING FROM COUNTER LEVEL TO HIGH CABNET 2 SETS/10REPS. BOX LIFTING 30# FROM FLOOR TO TABLE 2X15. SQUAT TO OVERHEAD LIFTING 30# KB. NASH CARRY 25# EA HAND 60 FEET X2. PLATE CLEAN FROM CHAIR TO OVERHEAD 25# 3X10. FARMERS CARRY FLIGHT OF STEP 10# EA HAND. SUIT CASE CARRY 25# 60 FEET X2. PLATE LIFT 35# 2X15. SLED PULL 90# 30 FEETX6. SLED PUSH 90# 30 FEET X6. PATIENT IS ABLE TO LIFT /PUSH/PULL MOD WEIGHT DURING WORK CONDITION/SIMULATION ACTIVIES - Goals Goal 1:: Independant with HEP for strengthening. Goal Progress: Goal Met Goal 2:: Patient to improve posture/body mechanics for function. Goal Progress: Goal Met Goal 3:: Patient to improve cervical and thoracic ROM for function of recovery. Goal Progress: Goal Met Goal 4:: Patient to decrease pain by 50% or grearer to improve function with RTW/housework tasks. Goal Progress: Goal Met Goal 5:: Patient in PEPE CERVICAL score by 5 points to improve QOL. Goal Progress: Goal Met Goal 6:: Patient increase strengt to 4/5 to improve function with housework and RTW as able. Goal Progress: Goal Met - Plan Plan: D/C - D/C Information Discharge Comments: HEP If there are questions or concerns regarding this patient's physical therapy, please feel free to call me at [phone]. Thank you for the referral of this patient. Sincerely, Munir Haskins, PT, Cert MDT, OCS
== END 2018-06-27 19:00 | disposition home or self-care (01) ==
LOC: PT 12:00
DX: S00.93XD Contusion of unspecified part of head, subsequent encounter (principal); S16.1XXD Strain of muscle, fascia and tendon at neck level, subsequent encounter; S22.32XD Fracture of one rib, left side, subsequent encounter for fracture with routine healing; S23.3XXD Sprain of ligaments of thoracic spine, subsequent encounter; S33.5XXD Sprain of ligaments of lumbar spine, subsequent encounter; S39.012D Strain of muscle, fascia and tendon of lower back, subsequent encounter; S46.911D Strain of unspecified muscle, fascia and tendon at shoulder and upper arm level, right arm, subsequent encounter; S46.912D Strain of unspecified muscle, fascia and tendon at shoulder and upper arm level, left arm, subsequent encounter
CPT/HCPCS: 97162